=== PATIENT | female | born 1945 | race Caucasian/White ===

== ENCOUNTER → 2018-01-07 | Outpatient (CLI) | payer MEDICARE | END | disposition home or self-care (01) | LOC: RAD 11:41 | PROVIDERS: ATTEND Family Medicine | DX: E04.2 Nontoxic multinodular goiter (principal) | CPT/HCPCS: 76536 ==

== ENCOUNTER → 2018-07-27 | Outpatient (CLI) | payer MEDICARE | END | disposition home or self-care (01) | LOC: CFH 13:37 | PROVIDERS: ATTEND Family Medicine | DX: N63.21 Unspecified lump in the left breast, upper outer quadrant (principal) | CPT/HCPCS: 76642; 77066 ==

== ENCOUNTER → 2018-09-16 | Outpatient (CLI) | payer MEDICARE ==
[~2018-09-16] MED LIST: LIDOCAINE 1%-EPI 1:100K, 20ML ONE
== END | disposition home or self-care (01) ==
LOC: CFH 07:25
PROVIDERS: ATTEND Surgery
DX: N63.20 Unspecified lump in the left breast, unspecified quadrant (principal)
CPT/HCPCS: 19285; 77065; J3490

== ENCOUNTER 2018-09-22 07:57 | Outpatient (CLI) | payer MEDICARE ==
[2018-09-22] MEDS ORDERED: ENAL5TAB PO (08:37)
[2018-09-26] MEDS ORDERED: ISOSULFAN BLUE 10 MG/ML, 5ML IV ONE (07:16)
== END 2018-09-22 23:59 | disposition home or self-care (01) ==
LOC: STAR 07:57
PROVIDERS: ATTEND Surgery
DX: Z01.818 Encounter for other preprocedural examination (principal)
CPT/HCPCS: 93005

== ENCOUNTER 2018-09-26 07:28 | Day surgery (SDC) | payer MEDICARE ==
[~2018-09-26] VITALS: Ht 175.3 cm; Wt 103.7 kg
[~2018-09-26 07:28] MED LIST changes: +BUPIVACAINE/PF-EPI 0.5% 1:200K ONE; +ENAL5TAB PO; -LIDOCAINE 1%-EPI 1:100K, 20ML ONE; +SUGAMMADEX 200 MG/2 ML IVPush ONE
[2018-09-26] MEDS ORDERED: LIDOCAINE-MPF 1%, 5ML ONE (08:34)
[2018-09-26 09:08] VITALS: BP 132/79
[2018-09-26] MEDS ORDERED: LACTATED RINGERS 1,000 ML IV SCH (09:10)
[2018-09-26] MEDS ORDERED: ROCURONIUM 10MG/ML,5ML ONE (09:50)
[2018-09-26] MEDS ORDERED: PROPOFOL 10 MG/ML, 20ML ONE (09:50)
[2018-09-26] MEDS ORDERED: FENTANYL PF 100 MCG/2ML ONE (09:51)
[2018-09-26] MEDS ORDERED: HYDROcodone/APAP 7.5-325MG/15ML UDC PO PRN (10:00)
[2018-09-26] MEDS ORDERED: MORPHINE SULFATE 4 MG/ML, 1ML IVPush PRN (10:00)
[2018-09-26] MEDS ORDERED: MEPERIDINE/PF 25MG/0.5ML IVPush PRN (10:00)
[2018-09-26] MEDS ORDERED: FENTANYL PF 100 MCG/2ML IV PRN (10:00)
[2018-09-26] MEDS ORDERED: OXYcodone 5 MG/5 ML ORAL.SOL UDC PO PRN (10:00)
[2018-09-26] MEDS ORDERED: CEFAZOLIN 1,000 MG ONE (10:02)
[2018-09-26] MEDS ORDERED: LIDOCAINE-MPF 2% ,5ML ONE (10:02)
[2018-09-26] MEDS ORDERED: OXYcodone 5 MG/5 ML ORAL.SOL UDC ONE (11:02)
== END 2018-09-26 13:15 | disposition home or self-care (01) ==
LOC: OUT 07:28 → EDSTATUS 10:30 → OUT 13:15
PROVIDERS: ATTEND Surgery
DX: C50.912 Malignant neoplasm of unspecified site of left female breast (principal); R59.1 Generalized enlarged lymph nodes; I10 Essential (primary) hypertension; Z98.890 Other specified postprocedural states; Z79.899 Other long term (current) drug therapy; Z72.89 Other problems related to lifestyle; Z87.891 Personal history of nicotine dependence
CPT/HCPCS: 19301; 38525; 38792; 76098; 88307; A9541; J0690; J2704; J3010; J3490; J7120

== ENCOUNTER → 2018-10-19 | Outpatient (CLI) | payer MEDICARE ==
[~2018-10-19] MED LIST changes: -BUPIVACAINE/PF-EPI 0.5% 1:200K ONE; -SUGAMMADEX 200 MG/2 ML IVPush ONE
== END | disposition home or self-care (01) ==
LOC: ROC 11:07
PROVIDERS: ATTEND Radiology Radiation Oncology
DX: C50.912 Malignant neoplasm of unspecified site of left female breast (principal); L81.9 Disorder of pigmentation, unspecified
CPT/HCPCS: 99214; G0463

== ENCOUNTER → 2018-12-22 | Outpatient (CLI) | payer MEDICARE | END | disposition home or self-care (01) | LOC: EDSTATUS 12-13 07:03 → ROC 07:26 | PROVIDERS: ATTEND Radiology Radiation Oncology | DX: Z08 Encounter for follow-up examination after completed treatment for malignant neoplasm (principal); C50.512 Malignant neoplasm of lower-outer quadrant of left female breast | CPT/HCPCS: 99213; G0463 ==

== ENCOUNTER → 2019-03-14 | Outpatient (CLI) | payer MEDICARE | END | disposition home or self-care (01) | LOC: CFH 12:42 | PROVIDERS: ATTEND Radiology Radiation Oncology | DX: C50.512 Malignant neoplasm of lower-outer quadrant of left female breast (principal); I10 Essential (primary) hypertension | CPT/HCPCS: 77065; G0279 ==

== ENCOUNTER 2019-10-18 19:03 | Emergency (ER) | payer MEDICARE ==
[~2019-10-18] VITALS: Ht 175.3 cm; Wt 104.9 kg
--- NOTE | 2019-10-18 19:14 | NUR ---
EKG DONE IN TRIAGE
--- NOTE | 2019-10-18 19:20 | NUR ---
PT REFUSED WHEELCHAIR, "WILL BE FINE WALKING"
[2019-10-18 20:06] LABS: BASOPHILS # (AUTO) 0.02 x10^3/uL (0-0.1); BASOPHILS % (AUTO) 1 % (0-1); EOSINOPHILS # (AUTO) 0.12 x10^3/uL (0-0.4); EOSINOPHILS % (AUTO) 2 % (1-7); LYMPHOCYTES # (AUTO) 1.32 x10^3/uL (1-3.4); LYMPHOCYTES % (AUTO) 25 % (22-44); MD NO; MEAN CORPUSCULAR HEMOGLOBIN 29.2 pg (27.0-34.8); MEAN CORPUSCULAR HGB CONC 33.3 g/dL (32.4-35.8); MEAN CORPUSCULAR VOLUME 87.6 fL (80-100); MONOCYTES # (AUTO) 0.35 x10^3/uL (0.2-0.8); MONOCYTES % (AUTO) 7 % (2-9); NEUTROPHILS # (AUTO) 3.57 x10^3/uL (1.8-6.8); NEUTROPHILS % (AUTO) 66 % (42-75); PLATELET COUNT 284 x10^3/uL (130-400); RED BLOOD COUNT 4.69 x10^6/uL (3.82-5.3); RED CELL DISTRIBUTION WIDTH 13.6 % (9.6-15.2)
[2019-10-18 20:17] LABS: ALBUMIN 3.9 g/dL (3.4-5.0); ANION GAP 5 mmol/L (5-15); CHLORIDE 108 mmol/L (98-107)
[2019-10-18 20:23] LABS: ALANINE AMINOTRANSFERASE 29 U/L (12-78); ALKALINE PHOSPHATASE 96 U/L (45-117); BILIRUBIN,TOTAL 1.1 mg/dL (0.2-1.0); CREATININE 0.76 mg/dL (0.55-1.02); TOTAL PROTEIN 7.7 g/dL (6.4-8.2); TROPONIN I < 0.015 ng/mL (0.000-0.045)
[2019-10-18] MEDS ORDERED: OMNIPAQUE 350 MG/ML, 100ML BOTTLE ONE (22:07)
[2019-10-18 23:09] VITALS: BP 124/54
== END 2019-10-18 23:12 | disposition home or self-care (01) ==
LOC: ED 23:09
DX: R42 Dizziness and giddiness (principal); R51 Headache; I10 Essential (primary) hypertension; E78.00 Pure hypercholesterolemia, unspecified; Z90.49 Acquired absence of other specified parts of digestive tract; Z87.891 Personal history of nicotine dependence
CPT/HCPCS: 36415; 70450; 70496; 70498; 71045; 80053; 84484; 85025; 93005; 99284; Q9967

== ENCOUNTER 2019-11-16 09:06 | Outpatient (CLI) | payer MEDICARE | END 2019-11-16 23:59 | disposition home or self-care (01) | LOC: ROC 09:06 | PROVIDERS: ATTEND Radiology Radiation Oncology | DX: C50.512 Malignant neoplasm of lower-outer quadrant of left female breast (principal) | CPT/HCPCS: 99213; G0463 ==

== ENCOUNTER → 2020-02-08 | Outpatient (CLI) | payer MEDICARE | END | disposition home or self-care (01) | LOC: CFH 12:20 | PROVIDERS: ATTEND Radiology Radiation Oncology | DX: Z12.31 Encounter for screening mammogram for malignant neoplasm of breast (principal); C50.512 Malignant neoplasm of lower-outer quadrant of left female breast; C50.412 Malignant neoplasm of upper-outer quadrant of left female breast; N60.01 Solitary cyst of right breast | CPT/HCPCS: 76641; 77063; 77067 ==

== ENCOUNTER 2020-03-11 15:12 | Emergency (ER) | payer MEDICARE ==
[~2020-03-11] VITALS: Ht 175.3 cm; Wt 104.5 kg
[~2020-03-11 15:12] MED LIST changes: -ENAL5TAB PO; +ENAL5TAB10 PO
--- NOTE | 2020-03-11 15:41 | NUR ---
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 CONRADO
--- NOTE | 2020-03-11 16:00 | NUR ---
FIRST CONTACT WITH PT. PT REPORTS HER SYSTOLIC BP WAS IN 160'S, LIGHTHEADED, H[place], WOOZY FOR FEW DAYS. PT'S BP IS 125/39 AT THIS TIME. PT STATED "I FEEL BETTER THAN BEFORE." PT'S AOX4. RESPS EVEN AND UNLABORED. BP/SPO2 MONITORS IN PLACE. CALL LIGHT WITHIN REACH.
[2020-03-11 17:03] LABS: BASOPHILS # (AUTO) 0.02 x10^3/uL (0-0.1); BASOPHILS % (AUTO) 0 % (0-1); EOSINOPHILS # (AUTO) 0.11 x10^3/uL (0-0.4); EOSINOPHILS % (AUTO) 2 % (1-7); LYMPHOCYTES % (AUTO) 26 % (22-44); MD NO; MEAN CORPUSCULAR HEMOGLOBIN 29.1 pg (27.0-34.8); MEAN CORPUSCULAR HGB CONC 33.2 g/dL (32.4-35.8); MEAN PLATELET VOLUME 7.8 fL (7.4-10.4); MONOCYTES # (AUTO) 0.44 x10^3/uL (0.2-0.8); MONOCYTES % (AUTO) 8 % (2-9); NEUTROPHILS # (AUTO) 3.44 x10^3/uL (1.8-6.8); NEUTROPHILS % (AUTO) 64 % (42-75); PLATELET COUNT 278 x10^3/uL (130-400); RED BLOOD COUNT 4.19 x10^6/uL (3.82-5.3); RED CELL DISTRIBUTION WIDTH 13.7 % (9.6-15.2)
[2020-03-11 17:08] LABS: ALBUMIN 3.4 g/dL (3.4-5.0); ANION GAP 3 mmol/L (5-15); CALCIUM 8.7 mg/dL (8.5-10.1); CHLORIDE 109 mmol/L (98-107); CREATININE 0.74 mg/dL (0.55-1.02)
[2020-03-11 17:45] VITALS: BP 130/53
--- NOTE | 2020-03-11 17:46 | NUR ---
Patient given discharge instructions and they have confirmed that they understand the instructions. Patient ambulatory with steady gait.
== END 2020-03-11 17:47 | disposition home or self-care (01) ==
LOC: ED 17:35
DX: I10 Essential (primary) hypertension (principal); R51 Headache; R07.9 Chest pain, unspecified; Z87.891 Personal history of nicotine dependence
CPT/HCPCS: 36415; 71045; 80048; 82040; 85025; 93005; 99285

== ENCOUNTER → 2020-04-11 | Outpatient (CLI) | payer MEDICARE ==
[~2020-04-11] MED LIST changes: +ENAL5TAB PO; -ENAL5TAB10 PO
== END | disposition home or self-care (01) ==
LOC: ROC 07:54
PROVIDERS: ATTEND Radiology Radiation Oncology
DX: C50.912 Malignant neoplasm of unspecified site of left female breast (principal)
CPT/HCPCS: 99212; G0463

== ENCOUNTER → 2020-07-29 | Outpatient (CLI) | payer MEDICARE ==
[~2020-07-29] MED LIST changes: -ENAL5TAB PO; +ENAL5TAB10 PO
== END | disposition home or self-care (01) ==
LOC: CFH 08:08
PROVIDERS: ATTEND Internal Medicine Hematology & Oncology
DX: C50.412 Malignant neoplasm of upper-outer quadrant of left female breast (principal); M85.88 Other specified disorders of bone density and structure, other site; M85.89 Other specified disorders of bone density and structure, multiple sites
CPT/HCPCS: 77080

== ENCOUNTER 2020-10-10 10:02 | Outpatient (CLI) | payer MEDICARE | END 2020-10-10 23:59 | disposition home or self-care (01) | LOC: ROC 10:02 | PROVIDERS: ATTEND Radiology Radiation Oncology | DX: Z08 Encounter for follow-up examination after completed treatment for malignant neoplasm (principal); Z85.3 Personal history of malignant neoplasm of breast | CPT/HCPCS: G2012; G2251 ==

== ENCOUNTER → 2021-02-13 | Outpatient (CLI) | payer MEDICARE | END | disposition home or self-care (01) | LOC: CFH 13:43 | PROVIDERS: ATTEND Radiology Radiation Oncology | DX: Z12.31 Encounter for screening mammogram for malignant neoplasm of breast (principal); C50.512 Malignant neoplasm of lower-outer quadrant of left female breast; N60.01 Solitary cyst of right breast | CPT/HCPCS: 76641; 77063; 77067 ==